=== PATIENT | female | born 1950 | race Caucasian/White ===

== ENCOUNTER → 2021-10-21 | Outpatient (CLI) | payer MEDICARE | LOC: MAMMO 09:20 | PROVIDERS: ATTEND Family Medicine | DX: Z12.31 Encounter for screening mammogram for malignant neoplasm of breast (principal) | CPT/HCPCS: 77067 ==

== ENCOUNTER → 2022-04-22 | Outpatient (CLI) | payer MEDICARE | LOC: DX 10:45 | PROVIDERS: ATTEND Family Medicine | DX: M85.88 Other specified disorders of bone density and structure, other site (principal) | CPT/HCPCS: 77080 ==

== ENCOUNTER → 2024-01-09 | Outpatient (REF) | payer MEDICARE | LOC: MAMMO 10:22 | PROVIDERS: ATTEND Family Medicine | DX: Z12.31 Encounter for screening mammogram for malignant neoplasm of breast (principal) | CPT/HCPCS: 77067 ==

== ENCOUNTER → 2024-06-28 | Outpatient (REF) | payer MEDICARE | LOC: DX 08:43 | PROVIDERS: ATTEND Nurse Practitioner Family | DX: Z13.820 Encounter for screening for osteoporosis (principal) | CPT/HCPCS: 77080 ==